=== PATIENT | male | born 1965 | race Caucasian/White ===

== ENCOUNTER 2022-07-30 23:30 | Emergency (ER) | payer OTHER, MEDICAID, SELFPAY ==
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
[2022-07-31] VITALS: BP 122/71; PULSE 99; RESP 18; TEMP 36.5; O2SAT 95
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
== END 2022-07-31 01:02 | disposition home or self-care (01) ==
PROVIDERS: Emergency Provider Emergency Medicine
DX: M79.641 Pain in right hand (principal); Z48.00 Encounter for change or removal of nonsurgical wound dressing
CPT/HCPCS: 99281

== ENCOUNTER 2022-08-05 02:58 | Emergency (ER) | payer OTHER, MEDICAID, SELFPAY ==
[2022-08-05 03:23] VITALS: BP 154/103; PULSE 86; RESP 18; TEMP 37.9; O2SAT 97; BMI 29.9
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
--- NOTE | 2022-08-05 05:26 | DI.RAD.S_ITS ---
PROCEDURE: XR SHOULDER RT MIN 2V INDICATIONS: pain TECHNIQUE: 3 views of the shoulder were acquired. COMPARISON: [facility], CR, XR RIBS RT MIN 3V W CXR 1V, 08/05/2022, 5:28. [facility], CT, CT ANGIO CHEST, 07/23/2022, 12:29. FINDINGS: Bones: No acute fractures or dislocations. There is a remote right Hill-Sachs deformity seen. No suspicious bony lesions. Visualized ribs appear intact. Age-appropriate bony degenerative changes are seen. Soft tissues: No suspicious soft tissue calcifications. The visualized lung demonstrates an unremarkable appearance. IMPRESSION: Negative for acute fracture or dislocation. Remote Hill-Sachs deformity. Note: No significant discrepancy from the preliminary report. Dictated by: Benjamin Loza M.D. on 08/05/2022 at 7:41 Approved by: Benjamin Loza M.D. on 08/05/2022 at 7:42
--- NOTE | 2022-08-05 05:26 | DI.RAD.S_ITS ---
PROCEDURE: XR RIBS RT MIN 3V W CXR 1V INDICATIONS: pain fall TECHNIQUE: 3 views of the right ribs were acquired, along with a single view chest. COMPARISON: [facility], CT, CT ANGIO CHEST, 07/23/2022, 12:29. [facility], CR, XR SHOULDER RT MIN 2V, 08/05/2022, 5:28. FINDINGS: Surgical changes and devices: None. Bones and chest wall: Minimally displaced fractures can be seen involving the right lateral 9th and 10th ribs. No suspicious lytic or blastic lesions are seen. Age-appropriate bony degenerative changes are seen. No significant soft tissue abnormality is seen. Lungs and pleura: No pleural effusions or pneumothorax. Lungs appear clear. Mediastinum: Mediastinal contours appear normal. Heart size is normal. IMPRESSION: Minimally displaced right lateral 9th and 10th rib fractures, without an associated pneumothorax seen. Note: This case (including differences between this final report and the preliminary report) discussed by telephone with Dr. Leija at 7:39 a.m. [place] time on August 05, 2022. Dictated by: Benjamin Loza M.D. on 08/05/2022 at 7:35 Approved by: Benjamin oLza M.D. on 08/05/2022 at 7:40
[2022-08-05] MEDS: KETOROLAC 30 MG/ML VIAL IM (05:44)
[2022-08-05] MEDS: LORazepam 0.5 MG TABLET 1 MG PO (05:45)
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
[2022-08-05 07:14] LABS: COVID-19 CEPHEID 4-PLEX PCR Negative (Negative); Influenza A - CEPHEID Flu A POSITIVE (NEGATIVE); Influenza B - CEPHEID Flu B NEGATIVE (NEGATIVE); Respiratory Syncytial Virus Negative (Negative)
[2022-08-05 08:50] VITALS: BP 132/76; PULSE 82; RESP 18; TEMP 37.2; O2SAT 98
== END 2022-08-05 09:00 | disposition home or self-care (01) ==
PROVIDERS: Emergency Provider Emergency Medicine
DX: M79.641 Pain in right hand (principal); J10.1 Influenza due to other identified influenza virus with other respiratory manifestations; Z20.822 Contact with and (suspected) exposure to COVID-19
CPT/HCPCS: 0241U; 71101; 73030; 99283; J1885

== ENCOUNTER 2022-08-05 21:35 | Emergency (ER) | payer OTHER, MEDICAID, SELFPAY ==
[2022-08-05 22:03] VITALS: PULSE 90; RESP 20; TEMP 38.7; O2SAT 96; BMI 31.5
[2022-08-05 22:19] VITALS: TEMP 38.6
[2022-08-05] MEDS: IBUPROFEN 400 MG TABLET 800 MG PO (22:19)
[2022-08-06 01:46] VITALS: TEMP 37.3
[2022-08-06 02:14] VITALS: TEMP 37.3
--- NOTE | 2022-08-06 04:54 | DI.RAD.S_ITS ---
PROCEDURE: XR CHEST 1V INDICATIONS: cough flu TECHNIQUE: One view of the chest was acquired. COMPARISON: [facility], CT, CT ANGIO CHEST, 07/23/2022, 12:29. [facility], CR, XR CHEST 1 VIEW, 07/22/2022, 21:28. FINDINGS: Surgical changes and devices: None. Lungs and pleura: Mild bronchial wall thickening bilaterally Lungs are clear. No pleural effusions or pneumothorax. Mediastinum: Mediastinal contours appear normal. Heart size is normal. Bones and chest wall: No suspicious bony lesions. Overlying soft tissues appear unremarkable. IMPRESSION: 1. Mild bronchial wall thickening bilaterally suggesting bronchitis. 2. Small left pleural effusion. No significant discrepancy with the operation shift supervisor radiology preliminary report. Dictated by: Jon Mcguire M.D. on 08/06/2022 at 8:24 Approved by: Jon Mcguire M.D. on 08/06/2022 at 8:26
[2022-08-06] MEDS: LORazepam 2 MG/ML INJ 1 MG IV (05:27)
[2022-08-06] MEDS: MORPHINE 4 MG/ML INJ IV (05:28)
[2022-08-06 05:38] LABS: Add Manual Diff / Slide Review NO; Basophils Absolute Auto 0 /uL (0-100); Basophils Percent Auto 0.9 % (0-2); Eosinophils Absolute Auto 100 /uL (0-450); Eosinophils Percent Auto 2.2 % (2-4); Hematocrit 36.5 % (41-53); Hemoglobin 12.2 g/dL (13.5-17.5); Lymphocytes Absolute Auto 400 /uL (1100-4500); Lymphocytes Percent Auto 7.4 % (25-40); Mean Corpuscular HGB Conc 33.4 % (30-36); Mean Corpuscular Hemoglobin 32.4 PG (26-34); Mean Corpuscular Volume 96.9 fL (80-100); Monocytes Absolute Auto 400 /uL (0-900); Monocytes Percent Auto 8.3 % (3-14); Neutrophils Absolute Auto 4200 /uL (1500-7000); Neutrophils Percent Auto 81.2 % (50-75); Platelet Count 118 X10^3/uL (150-400); Red Blood Cell Count 3.77 X10^6/uL (4.5-5.9); Red Cell Distribution Width 13.9 % (11.6-14.8); White Blood Cell Count 5.1 X10^3/uL (4.5-11.0)
[2022-08-06 05:39] LABS: Lactate (Lactic Acid) 1.1 mmol/L (0.7-2.1)
[2022-08-06 05:43] LABS: Alanine Aminotransferase 39 IU/L (<50); Albumin 4.3 g/dL (3.5-5.0); Albumin Globulin Ratio 1.3 (1.0-2.8); Alkaline Phosphatase 87 U/L (38-126); Aspartate Aminotransferase 84 IU/L (17-59); Bilirubin Total 0.7 mg/dL (0.2-1.3); Blood Urea Nitrogen 13 mg/dL (9-20); Calcium 8.6 mg/dL (8.4-10.2); Carbon Dioxide 27 mmol/L (22-32); Chloride 100 mmol/L (98-107); Creatine Kinase 1007 U/L (55-170); Estimated Glomerular Filt Rate > 60 mL/min (>60); Globulin 3.3 g/dL (1.7-4.1); Glucose 103 mg/dL (70-100); HEMOLYSIS 37 (0-50); Potassium 4.4 mmol/L (3.4-5.1); Sodium 135 mmol/L (137-145); Total Protein 7.6 g/dL (6.3-8.2)
[2022-08-06 05:54] LABS: Troponin I < 0.012 ng/mL (0.01-0.034)
[2022-08-06 05:58] LABS: CKMB % Relative Index 0.2 % (1.5-5.0); Creatine Kinase MB 1.75 ng/mL (<2.37)
[2022-08-06 06:00] LABS: Procalcitonin 0.12 ng/mL (<0.5)
--- NOTE | 2022-08-06 06:48 | ED.URI ---
HPI - URI/Sore Throat General Chief Complaint: Fever Stated Complaint: Almost passed out, Head rushes Time Seen by Provider: 08/06/22 04:54 Source: patient Mode of arrival: Ambulatory History of Present Illness HPI Narrative: Patient is a 57-year-old male history of atrial fibrillation homeless presenting for the 2nd time in 24 hours. He was diagnosed earlier with influenza. He continues to have fever cough generally feel well. Let his last drink was 930 last night he is still having shakes Related Data Previous Rx's Medication Instructions Recorded ibuprofen 200 mg tablet (Motrin IB) 600 mg PO Q6H PRN pain, mild #60 08/05/22 tabs meloxicam 7.5 mg tablet 7.5 mg PO BID PRN pain #20 tabs 08/05/22 Allergies Allergy/AdvReac Type Severity Reaction Status Date / Time No Known Drug Allergies Allergy Verified 08/05/22 22:07 Review of Systems Review of Systems Narrative: GENERAL: See HP HEENT: Denies sinus pain, ear pain, sore throat, difficulty swallowing, neck pain RESPIRATORY: See HPI CARDIOVASCULAR: Denies chest pain, palpitations, orthopnea, edema GASTROINTESTINAL: Denies nausea, vomiting, abdominal pain, diarrhea, constipation, melena. : Denies dysuria, frequency, incontinence, hematuria, urinary retention, flank pain. MUSCULOSKELETAL: Denies weakness, joint pain, or bony pain SKIN: No rash, no erythema, no pruritus NEUROLOGIC: Denies weakness, dizziness, headache, numbness, change in speech, confusion PSYCHIATRIC: No concerning psychosocial issues. 12 point review of systems is negative except for those stated above and HPI Patient History Social History Smoking Status: Former smoker Smoking Status: Former smoker alcohol intake frequency: 3 or more drinks per day Alcohol type: hard liquor Substance Use Type: does not use Exam Initial Vital Signs Initial Vital Signs: Vital Signs Temperature 101.6 F H 08/05/22 22:03 Pulse Rate 90 08/05/22 22:03 Respiratory Rate 20 08/05/22 22:03 Pulse Oximetry 96 08/05/22 22:03 Oxygen Delivery Method 08/05/22 22:03 GENERAL: Patient appears to not feel HEENT: Head atraumatic,EOMI, pupils reactive, face symmetric, moist mucous membranes CARDIOVASCULAR: Regular rate and rhythm without murmurs, rubs or gallops. RESPIRATORY: Breath sounds equal bilaterally, no wheezes rales or rhonchi. ABDOMEN: Soft, nontender. Normoactive bowel sounds all 4 quadrants. No guarding or rebound. EXTREMITIES: Normal range of motion, no clubbing or edema. Neurovascularly intact NEUROLOGICAL: Alert and oriented x4. SKIN: Warm, dry, no laceration, no petechiae, no rashes or lesions. Course Orders Ordered: ED Orders 08/06/22 04:54 Chest [XR chest 1V] Stat 08/06/22 04:58 EKG-12 Lead Stat 08/06/22 05:09 CBC Auto Diff [Complete Blood Count AUTO DIFF] Stat CMP [Comprehensive Metabolic Panel] Stat Lactate (Lactic Acid) Stat Procalcitonin Stat Troponin & CK Cardiac Panel Stat Discontinued Medications Sodium Chloride (Normal Saline 0.9%) 1,000 mls @ 1,000 mls/hr IV BOLUS ONE Stop: 08/06/22 07:14 Last Infusion: 08/06/22 08:15 Dose: 0 mls/hr Documented By: Infusion: 08/06/22 08:14 Dose: 0 mls/hr Documented By: Admin: 08/06/22 07:19 Dose: 1,000 mls/hr Documented By: KEENAN Ibuprofen (Ibuprofen 400 Mg Tablet) 800 mg PO NOW ONE Stop: 08/05/22 22:08 Last Admin: 08/05/22 22:19 Dose: 800 mg Documented By: SAMSON Lorazepam (Lorazepam 2 Mg/Ml Inj) 1 mg IV NOW ONE Stop: 08/06/22 04:59 Last Admin: 08/06/22 05:27 Dose: 1 mg Documented By: JENNIFER Morphine Sulfate (Morphine 4 Mg/Ml Inj) 4 mg IV NOW ONE Stop: 08/06/22 04:59 Last Admin: 08/06/22 05:28 Dose: 4 mg Documented By: JENNIFER Vital Signs Vital signs: Vital Signs - 8 hr 08/06/22 01:46 08/06/22 02:14 08/06/22 07:28 Temperature 99.2 F 99.2 F Pulse Rate 76 Blood Pressure 136/90 Pulse Oximetry 95 Oxygen Delivery Method Room Air MDM - URI/Sore Throat Lab Data Result diagrams: 08/06/22 05:09 08/06/22 05:09 Labs: Lab Results 08/06/22 08/06/22 08/06/22 Range/Units 05:09 05:09 05:09 WBC 5.1 (4.5-11.0) X10^3/uL RBC 3.77 L (4.5-5.9) X10^6/uL Hgb 12.2 L (13.5-17.5) g/dL Hct 36.5 L (41-53) % MCV 96.9 (80-100) fL MCH 32.4 (26-34) PG MCHC 33.4 (30-36) % RDW 13.9 (11.6-14.8) % Plt Count 118 L (150-400) X10^3/uL Neut % (Auto) 81.2 H (50-75) % Lymph % (Auto) 7.4 L (25-40) % [place] % (Auto) 8.3 (3-14) % Eos % (Auto) 2.2 (2-4) % Baso % (Auto) 0.9 (0-2) % Neut # (Auto) 4200 (0552-2947) /uL Lymph # (Auto) 400 L (3296-6424) /uL [place] # (Auto) 400 (0-900) /uL Eos # (Auto) 100 (0-450) /uL Baso # (Auto) 0 (0-100) /uL Sodium 135 L (137-145) mmol/L Potassium 4.4 (3.4-5.1) mmol/L Chloride 100 (98-107) mmol/L Carbon Dioxide 27 (22-32) mmol/L BUN 13 (9-20) mg/dL Creatinine 0.93 (0.66-1.25) mg/dL Estimated GFR > 60 (>60) mL/min BUN/Creatinine Ratio 14.0 (6-22) Glucose 103 H (70-100) mg/dL Lactate 1.1 (0.7-2.1) mmol/L Calcium 8.6 (8.4-10.2) mg/dL Total Bilirubin 0.7 (0.2-1.3) mg/dL AST 84 H (17-59) IU/L ALT 39 (<50) IU/L Alkaline Phosphatase 87 (38-126) U/L Total Creatine Kinase 1007 H (55-170) U/L CK-MB (CK-2) 1.75 (<2.37) ng/mL CK-MB (CK-2) Rel Index 0.2 L (1.5-5.0) % Troponin I < 0.012 (0.01-0.034) ng/mL Total Protein 7.6 (6.3-8.2) g/dL Albumin 4.3 (3.5-5.0) g/dL Globulin 3.3 (1.7-4.1) g/dL Albumin/Globulin Ratio 1.3 (1.0-2.8) Procalcitonin (<0.5) ng/mL 08/06/22 Range/Units 05:09 WBC (4.5-11.0) X10^3/uL RBC (4.5-5.9) X10^6/uL Hgb (13.5-17.5) g/dL Hct (41-53) % MCV (80-100) fL MCH (26-34) PG MCHC (30-36) % RDW (11.6-14.8) % Plt Count (150-400) X10^3/uL Neut % (Auto) (50-75) % Lymph % (Auto) (25-40) % [place] % (Auto) (3-14) % Eos % (Auto) (2-4) % Baso % (Auto) (0-2) % Neut # (Auto) (0741-8688) /uL Lymph # (Auto) (3341-1299) /uL [place] # (Auto) (0-900) /uL Eos # (Auto) (0-450) /uL Baso # (Auto) (0-100) /uL Sodium (137-145) mmol/L Potassium (3.4-5.1) mmol/L Chloride (98-107) mmol/L Carbon Dioxide (22-32) mmol/L BUN (9-20) mg/dL Creatinine (0.66-1.25) mg/dL Estimated GFR (>60) mL/min BUN/Creatinine Ratio (6-22) Glucose (70-100) mg/dL Lactate (0.7-2.1) mmol/L Calcium (8.4-10.2) mg/dL Total Bilirubin (0.2-1.3) mg/dL AST (17-59) IU/L ALT (<50) IU/L Alkaline Phosphatase (38-126) U/L Total Creatine Kinase (55-170) U/L CK-MB (CK-2) (<2.37) ng/mL CK-MB (CK-2) Rel Index (1.5-5.0) % Troponin I (0.01-0.034) ng/mL Total Protein (6.3-8.2) g/dL Albumin (3.5-5.0) g/dL Globulin (1.7-4.1) g/dL Albumin/Globulin Ratio (1.0-2.8) Procalcitonin 0.12 (<0.5) ng/mL Imaging Data Chest x-ray: Radiologist's Impression: XRay Report Signed Patient: Chico Jones MR#: [id number] : 1965 Acct:[id number] Age/Sex: 57 / M Date of Service: 08/06/22 Loc: ED Accession Number: [id number] ?? Procedure: XR chest 1V Ordering Provider: Amanda Menjivar D.O. PROCEDURE:? XR CHEST 1V ? INDICATIONS:? cough flu ? TECHNIQUE:? One view of the chest was acquired.? ? COMPARISON:? [facility], CT, CT ANGIO CHEST, 07/23/2022, 12:29.? [facility], CR, XR CHEST 1 VIEW, 07/22/2022, 21:28. ? FINDINGS:? ? Surgical changes and devices:? None.? ? Lungs and pleura:? Mild bronchial wall thickening bilaterally Lungs are clear.? No pleural effusions or pneumothorax.? ? Mediastinum:? Mediastinal contours appear normal.? Heart size is normal.? ? Bones and chest wall:? No suspicious bony lesions.? Overlying soft tissues appear unremarkable.? ? IMPRESSION:? ? 1. Mild bronchial wall thickening bilaterally suggesting bronchitis. 2. Small left pleural effusion. ? ? 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 ? ? Dictated by: Jon Mcguire M.D. on 08/06/2022 at 8:24 ? ? ECG Data Interpretation: Atrial fibrillation rate 122 MDM Narrative Medical decision making narrative: Patient has influenza a. Blood work is overall reassuring. Chest x-ray does not show pneumonia. He has fever here. Was starting to shake he was given Ativan and fluids. Feeling a bit better. At this time no need for admission. Discharge Plan Departure Patient Disposition: Home Clinical Impression: Influenza A Instructions: Influenza Activity Restrictions/Additional Instructions: *You have been diagnosed with influenza *What to do: At this time no need for antibiotics. Please stay hydrated try to stay 1 *Continue to take medications as directed *Follow up with your primary care provider in 2-3 days or call [phone] *Return to ER if you should have increasing shortness of breath or any new, worsening or concerning symptoms Prescriptions: No Action ibuprofen [Motrin IB] 200 mg tablet 600 mg PO Q6H PRN (Reason: pain, mild) Qty: 60 0RF meloxicam 7.5 mg tablet 7.5 mg PO BID PRN (Reason: pain) Qty: 20 0RF Visit Report Forms: Patient Portal/API
[2022-08-06] MEDS: SODIUM CHLORIDE 0.9% 1,000 ML 1000 ML IV (07:19)
[2022-08-06 07:28] VITALS: BP 136/90; PULSE 76; O2SAT 95
== END 2022-08-06 08:16 | disposition home or self-care (01) ==
PROVIDERS: Emergency Provider Emergency Medicine
DX: J10.1 Influenza due to other identified influenza virus with other respiratory manifestations (principal); Z20.822 Contact with and (suspected) exposure to COVID-19; I48.91 Unspecified atrial fibrillation; M79.641 Pain in right hand
CPT/HCPCS: 0241U; 36415; 71045; 71101; 73030; 80053; 82550; 82553; 83605; 84145; 84484; 85025; 93005; 93010; 96361; 96372; 96374; 96375; 99283; 99284; J1885; J2060; J2270